=== PATIENT | female | born 1960 | race Caucasian/White ===

== ENCOUNTER 2021-07-24 09:30 | Emergency (ER) | payer OTHER, SELFPAY ==
[2021-07-24 10:50] LABS: Absolute Lymphocytes (CBC) 2.8 K/uL (0.7-4.9); Hematocrit 46.6 % (36.0-45.0); Lymphocytes % 29.3 % (15.3-44.8); RBC Red Blood Cell Count 5.05 M/uL (3.86-4.86)
[2021-07-24 10:51] LABS: Protime INR 0.88
--- NOTE | 2021-07-24 10:52 | RAD REPORT ---
EXAM DESCRIPTION: RAD - Chest Single View - 07/24/2021 10:36 am CLINICAL HISTORY: CHEST PAIN COMPARISON: CHEST SINGLE VIEW dated 09/02/2015; CHEST PA AND LAT 2 VIEW dated 05/01/2014 FINDINGS: Lines: None. Lungs: No evidence of edema or pneumonia. Pleural: No significant pleural effusions or pneumothorax. Cardiac: The heart size is within normal limits. Bones: No acute fractures. Other: IMPRESSION: No acute cardiopulmonary disease.
[2021-07-24 11:47] LABS: Albumin 3.6 g/dL (3.4-5.0); Bilirubin Direct 0.2 mg/dL (0-0.2); Bilirubin Total 0.6 mg/dL (0.2-1.0); Potassium 3.4 mmol/L (3.5-5.1); Troponin High Sensitivity 9.7 pg/mL (<58.9)
--- NOTE | 2021-07-24 12:57 | ER ---
Nurse's Notes [facility] Name: Shazia Handley Age: 61 yrs Sex: Female : 1960 Arrival Date: 07/24/2021 Time: 09:32 Bed 24 Private MD: Deisy Sanchez H Diagnosis: Chest pain, unspecified Presentation: 07/24 09:54 Chief complaint: Patient states: Left jaw pain x 3-4 days, right sided chest pain x 1 jl7 week "And I'm getting big blood clots in my sinus area." Denies SEGURA, reports pain to left eye. Reports intermittent bilateral hands and bilateral legs tingling x 3 days. Coronavirus screen: At this time, the client does not indicate any symptoms associated with coronavirus-19. Ebola Screen: No symptoms or risks identified at this time. Initial Sepsis Screen: Does the patient meet any 2 criteria? No. Patient's initial sepsis screen is negative. Does the patient have a suspected source of infection? No. Patient's initial sepsis screen is negative. Risk Assessment: Do you want to hurt yourself or someone else? Patient reports no desire to harm self or others. Onset of symptoms is unknown. 09:54 Method Of Arrival: Ambulatory jl7 09:54 Acuity: KISHAN 3 jl7 Triage Assessment: 09:57 General: Appears in no apparent distress. uncomfortable, Behavior is cooperative, jl7 anxious. Pain: Complains of pain in left jaw. Cardiovascular: Patient's skin is warm and dry. Historical: - Allergies: 09:57 PENICILLINS; jl7 - Home Meds: 09:57 ProAir HFA inhalation [Active]; Prednisone Oral [Active]; jl7 - PMHx: 09:57 Fibromyalgia; jl7 10:07 "Breathing/lung problem"; cb5 - Immunization history:: Adult Immunizations not up to date. - Social history:: Smoking status: Patient reports the use of cigarette tobacco products, smokes one-half pack cigarettes per day. Screenin:07 Abuse screen: Denies threats or abuse. Denies injuries from another. Nutritional cb5 screening: No deficits noted. Tuberculosis screening: No symptoms or risk factors identified. Fall Risk None identified. Assessment: 10:04 General: Appears comfortable, Behavior is calm, cooperative, appropriate for age. Pain: cb5 Complains of pain in face and left jaw Pain does not radiate. Pain began gradually. Neuro: No deficits noted. Cardiovascular: No deficits noted. Respiratory: No deficits noted. Respiratory: No deficits noted. GI: No deficits noted. : No deficits noted. EENT: No deficits noted. Derm: No deficits noted. Musculoskeletal: No deficits noted. 11:37 Reassessment: Patient and/or family updated on plan of care and expected duration. Pain cb5 level reassessed. 12:14 Reassessment: Patient states feeling better. cb5 12:53 Reassessment: Pt left the facility with IV still in, [place] [employer] notified and reports they jl7 will send an officer to remove the IV. Vital Signs: 09:54 BP 129 / 87; Pulse 79; Resp 17; Temp 97.9; Pulse Ox 97% on R/A; Weight 86.18 kg; Height jl7 5 ft. 4 in. (162.56 cm); Pain 8/10; 09:54 Body Mass Index 32.61 (86.18 kg, 162.56 cm) jl7 ED Course: 09:32 Patient arrived in ED. am2 09:32 Deisy Sanchez DO is Private Physician. am2 09:57 Triage completed. jl7 09:57 Arm band placed on right wrist. jl7 10:01 Saul Sepulveda NP is PHCP. pm1 10:01 Usman Rodriguez MD is Attending Physician. pm1 10:03 Esperanza Diggs, RN is Primary Nurse. cb5 10:07 Patient has correct armband on for positive identification. Bed in low position. Call cb5 light in reach. Side rails up X 1. traffic monitor specialist on. 10:07 No provider procedures requiring assistance completed. cb5 10:07 Oxygen administration via nasal cannula \\T\\ 2L/min. cb5 10:21 EKG done, by ED staff, reviewed by Usman Rodriguez MD. mb7 10:37 XRAY Chest (1 view) In Process Unspecified. EDMS 10:43 Basic Metabolic Panel Sent. cb5 10:43 CBC with Diff Sent. cb5 10:43 LFT's Sent. cb5 10:43 Magnesium Sent. cb5 10:43 PT-INR Sent. cb5 10:43 Troponin HS Sent. cb5 10:43 NT PRO-BNP Sent. cb5 12:56 Deisy Sanchez DO is Referral Physician. pm1 Administered Medications: No medications were administered Outcome: 12:57 Eloped from patient exam room, after seeing physician Time discovered patient gone: jl7 July 24, 2021 at 12:50 12:57 Patient left the ED. jl7 Signatures: Dispatcher [employer] EDMS Saul Sepulveda NP MICROF[employer]HE CAMERA OPERATOR pm1 Aren Giordano RN RN jl7 Suri Palm amTalya Joyce 7 Esperanza Diggs, RN RN cb5 Corrections: (The following items were deleted from the chart) 10:08 09:57 PMHx: "Breathing/lung problem"; 7 cb5
--- NOTE | 2021-07-24 12:57 | EDPHYS ---
Physician Documentation [facility] Name: Shazia Handley Age: 61 yrs Sex: Female : 1960 Arrival Date: 07/24/2021 Time: 09:32 Bed 24 Private MD: Deisy Sanchez H ED Physician Usman Rodriguez HPI: 07/24 10:10 This 61 yrs old Female presents to ER via Ambulatory with complaints of Chest Pain, pm1 facial pain. 10:10 The patient or guardian reports chest pain that is located primarily in the anterior pm1 aspect of right upper chest. Onset: Present for multiple months and has been evaluated by her PCP for the same complaint. Reports that is is worse the past 3 days. The pain does not radiate. Associated signs and symptoms: Pertinent positives: headache, sinus pain. The chest pain is described as sharp. Duration: The patient or guardian reports a single episode, that is still ongoing. Modifying factors: The symptoms are alleviated by nothing. the symptoms are aggravated by emotionally stressful situations. Severity of pain: in the emergency department the pain is actually worse. Historical: - Allergies: 09:57 PENICILLINS; jl7 - Home Meds: 09:57 ProAir HFA inhalation [Active]; Prednisone Oral [Active]; jl7 - PMHx: 09:57 Fibromyalgia; jl7 10:07 "Breathing/lung problem"; cb5 - Immunization history:: Adult Immunizations not up to date. - Social history:: Smoking status: Patient reports the use of cigarette tobacco products, smokes one-half pack cigarettes per day. ROS: 10:10 Constitutional: Negative for fever, chills, and weight loss. pm1 10:10 Respiratory: Negative for shortness of breath, cough, wheezing, and pleuritic chest pain, Abdomen/GI: Negative for abdominal pain, nausea, vomiting, diarrhea, and constipation, Back: Negative for injury and pain, MS/Extremity: Negative for injury and deformity, Skin: Negative for injury, rash, and discoloration, Neuro: Negative for headache, weakness, numbness, tingling, and seizure. 10:10 ENT: Positive for nose bleed, sinus congestion, sinus pain. 10:10 Cardiovascular: Positive for chest pain, Negative for edema. 10:10 All other systems are negative. Exam: 10:10 Constitutional: This is a well developed, well nourished patient who is awake, alert, pm1 and in no acute distress. Head/Face: Normocephalic, atraumatic. 10:10 Back: No spinal tenderness. No costovertebral tenderness. Full range of motion. Skin: Warm, dry with normal turgor. Normal color with no rashes, no lesions, and no evidence of cellulitis. MS/ Extremity: Pulses equal, no cyanosis. Neurovascular intact. Full, normal range of motion. Neuro: Awake and alert, GCS 15, oriented to person, place, time, and situation. Cranial nerves II-XII grossly intact. Motor strength 5/5 in all extremities. Sensory grossly intact. Cerebellar exam normal. Normal gait. 10:10 Cardiovascular: Exam negative for acute changes, Rate: normal, Rhythm: regular, Pulses: no pulse deficits are appreciated, Heart sounds: normal. 10:10 Respiratory: Exam negative for acute changes, respiratory distress, shortness of breath, Breath sounds: are clear throughout. Vital Signs: 09:54 BP 129 / 87; Pulse 79; Resp 17; Temp 97.9; Pulse Ox 97% on R/A; Weight 86.18 kg; Height jl7 5 ft. 4 in. (162.56 cm); Pain 8/10; 09:54 Body Mass Index 32.61 (86.18 kg, 162.56 cm) jl7 MDM: 10:02 Patient medically screened. pm1 11:00 Refusal of service: The patient/guardian displays adequate decision making capability pm1 and despite a detailed discussion of alternatives, benefits, risks, and consequences refuses: CT Scan, Patient does not want her headache and facial pain evaluated with a CT scan due to cost. 11:00 Data reviewed: vital signs. Data interpreted: Pulse oximetry: on room air is 97 %. pm1 Interpretation: normal. 07/24 10:10 Order name: Basic Metabolic Panel pm1 07/24 10:10 Order name: CBC with Diff; Complete Time: 11:00 pm1 07/24 10:10 Order name: LFT's pm1 07/24 10:10 Order name: Magnesium pm1 07/24 10:10 Order name: NT PRO-BNP pm1 07/24 10:10 Order name: PT-INR; Complete Time: 11:00 pm07/24 10:10 Order name: Troponin HS 07/24 10:10 Order name: XRAY Chest (1 view); Complete Time: 11:00 pm07/24 10:10 Order name: EKG; Complete Time: 10:11 pm07/24 10:10 Order name: Cardiac monitoring; Complete Time: 10:43 pm07/24 10:10 Order name: EKG - Nurse/Tech; Complete Time: 10:21 pm07/24 10:10 Order name: IV Saline Lock; Complete Time: 10:43 pm07/24 10:10 Order name: Labs collected and sent; Complete Time: 10:43 pm07/24 10:10 Order name: O2 Per Protocol; Complete Time: : pm07/24 10:10 Order name: O2 Sat Monitoring; Complete Time: :43 pm07/24 10:57 Order name: Labs - recollect needed: recollect light green tube blood hemolyzed; eb Complete Time: 11:06 Administered Medications: No medications were administered Disposition: 17:06 Co-signature as Attending Physician, Usman Rodriguez MD I agree with the assessment and kdr plan of care. Disposition Summary: 07/24/21 12:56 Eloped Disposition: after being seen by provider pm1 Problem: new pm1 Symptoms: are unchanged pm1 Reason: (see nurse's notes) pm1 Condition: Undetermined pm1 Diagnosis - Chest pain, unspecified pm1 Followup: pm1 - With: Sanchez, Michelle-Jayden, DO - When: Upon discharge from the Emergency Department - Reason: Recheck today's complaints, Continuance of care, Re-evaluation by your physician Followup: pm1 - With: Emergency Department - When: As needed - Reason: Worsening of condition Signatures: Dispatcher [employer] EDMS Usman Rodriguez MD MD kdr Marinas, Patrick, NP FAMILY SERVICE CASEWORKER pm1 Aren Giordano RN RN jl7 Anne Barton Colleen, RN RN cb5 Corrections: (The following items were deleted from the chart) 10:08 09:57 PMHx: "Breathing/lung problem"; phyllis cb5
[2021-07-24 13:02] VITALS: BP 129/87; TEMP 97.9; O2SAT 97
[2021-07-24 22:10] LABS: Magnesium 2.1
--- NOTE | 2021-07-26 14:46 | EKG ---
Test Date: 2021-07-24 Test Time: 10:17:10 Hand Slitter: MB MEASUREMENT RESULTS: Intervals: Rate: 65 MN: 156 QRSD: 82 QT: 428 QTc: 445 [place]: P: 78 MN: 156 QRS: 73 T: 76 INTERPRETIVE STATEMENTS: Normal sinus rhythm with sinus arrhythmia Normal ECG Compared to ECG 09/02/2015 14:35:13 No significant changes Electronically Signed On 07-26-21 14:44:52 FAGOTER by Martinez Perez
== END 2021-07-24 12:57 | disposition left against medical advice (07) ==
LOC: ER 09:30
DX: R07.9 Chest pain, unspecified (principal); M79.7 Fibromyalgia; F17.210 Nicotine dependence, cigarettes, uncomplicated; Z88.0 Allergy status to penicillin
CPT/HCPCS: 36415; 71045; 80048; 80076; 83735; 83880; 84484; 85025; 85610; 93005; 99284